=== PATIENT | male | born 1980 ===

== ENCOUNTER → 2024-12-07 | Outpatient (CLI) | payer SELFPAY ==
[2024-12-07 19:04] LABS: Ferritin 97 ng/mL (37-417); Free T3 2.9 pg/mL (2.18-3.98)
[2024-12-07 19:37] LABS: CRP < 3.00 mg/L (0.0-3.0); Iron 123 ug/dL (65-175)
[2024-12-14 12:09] LABS: Testosterone, % Free 2.35 % (1.50-4.20); Testosterone, Free 6.89 ng/dL (5.00-21.00)
[2024-12-16 03:07] LABS: Arsenic 7245 1 ug/L (0-9); CRP, High Sensitivity 0.35 mg/L (0.00-3.00); Lead, Blood < 1.0 ug/dL (0.0-3.4); Mercury, Blood 85324 < 1.0 ug/L (0.0-14.9)
== END | disposition home or self-care (01) ==
PROVIDERS: PCP Nurse Practitioner Family; Referring Provider Nurse Practitioner Family; Visit Provider Nurse Practitioner Family
DX: F32.A Depression, unspecified (principal); F41.9 Anxiety disorder, unspecified; G47.00 Insomnia, unspecified; R25.1 Tremor, unspecified; E04.1 Nontoxic single thyroid nodule
CPT/HCPCS: 82627; 82728; 83540; 84402; 84403; 84439; 84443; 84481; 86140; 86141; 86376; 86800; 82626